=== PATIENT | female | born 1945 | race Caucasian/White ===

== ENCOUNTER 2016-12-09 18:07 | Emergency (ER) | payer OTHER ==
[~2016-12-09] VITALS: Ht 167.6 cm; Wt 98.4 kg
[2016-12-09] MEDS ORDERED: SIMV10TA2 (18:24)
[2016-12-09] MEDS ORDERED: CITA20TA4 (18:24)
[2016-12-09] MEDS ORDERED: LISI-538 (18:24)
[2016-12-09] MEDS ORDERED: METR500T10 (18:24)
[2016-12-09] MEDS ORDERED: CIPR500T3 (18:24)
[2016-12-09] MEDS ORDERED: OMEP40CA2 (18:24)
[2016-12-09] MEDS ORDERED: ALBU17IN (18:24)
[2016-12-09] MEDS ORDERED: NS 1,000 ML IV SCH (20:50)
[2016-12-09] MEDS ORDERED: ONDANSETRON 4MG/2ML VIAL (J2405) IV ONE (21:00)
[2016-12-09] MEDS ORDERED: MORPHINE 4 MG/ML 1ML SYRINGE IV PRN (21:00)
[2016-12-09 21:47] LABS: BASO % 0.3 % (0.0-1.0); EOS # 0.3 K/mm3 (0.0-0.50); EOS % 2.8 % (0.0-3.0); LARGE UNSTAINED CELL # 0.2 K/mm3 (0.0-0.4); LARGE UNSTAINED CELL % 1.7 % (0.0-4.0); LYMPH # 1.8 K/mm3 (1.5-4.5); LYMPH % 15.7 % (24.0-44.0); MEAN CORPUSCULAR HEMOGLOBIN 29.4 pg (27.0-33.0); MEAN CORPUSCULAR HGB CONC 34.4 g/dl (32.0-36.5); MEAN CORPUSCULAR VOLUME 85.5 fl (80.0-96.0); MONO # 0.5 K/mm3 (0.0-0.8); MONO % 5.4 % (0.0-5.0); NEUTROPHILS # 7.5 K/mm3 (1.8-7.7); NEUTROPHILS % 74.2 % (36.0-66.0); PLATELET COUNT, AUTOMATED 208 k/mm3 (150-450); RED CELL DISTRIBUTION WIDTH 13.6 % (11.5-14.5); WHITE BLOOD COUNT 10.1 K/mm3 (4.0-10.0)
[2016-12-09] MEDS ORDERED: GASTROGRAFIN SOLUTION 30ML (Q9963) PO ONE ×3 (22:00→22:30)
[2016-12-09 22:28] LABS: ALBUMIN 3.8 GM/DL (3.2-5.2); ALBUMIN/GLOBULIN RATIO 1.31 (1.00-1.93); ALKALINE PHOSPHATASE 92 U/L (45-117); ALT/SGPT 33 U/L (12-78); ANION GAP 10 MEQ/L (8-16); AST/SGOT 21 U/L (15-37); BILIRUBIN,DIRECT 0.3 MG/DL (0.0-0.2); BILIRUBIN,TOTAL 0.9 MG/DL (0.2-1.0); BLOOD UREA NITROGEN 16 MG/DL (7-18); CALCIUM LEVEL 8.5 MG/DL (8.8-10.2); CARBON DIOXIDE LEVEL 27 MEQ/L (21-32); CHLORIDE LEVEL 101 MEQ/L (98-107); CREATININE FOR GFR 0.73 MG/DL (0.55-1.02); GLOMERULAR FILTRATION RATE > 60.0 (>45); GLUCOSE, FASTING 112 MG/DL (80-110); POTASSIUM SERUM 3.5 MEQ/L (3.5-5.1); SODIUM LEVEL 138 MEQ/L (136-145); TOTAL PROTEIN 6.7 GM/DL (6.4-8.2)
[2016-12-09] MEDS ORDERED: ISOVUE-370 76% 100ML VIAL (Q9967) As Ordered ONE (23:45)
--- NOTE | 2016-12-10 01:10 | REPUSA ---
CLINICAL HISTORY: Abdominal pain. TECHNIQUE: Multiple axial, sagittal and coronal CT images were obtained through the abdomen and pelvi s after administration of intravenous contrast material. COMMENTS: Sigmoid diverticulosis. Thickening of the sigmoid colon with surrounding fat stranding. Scattered simple hepatic cysts with the largest measuring 1.5 cm. Small sliding hiatal hernia. The liver is mildly enlarged with decreased attenuation suggestive of fatty infiltration but without mass or defect. There is no intra or extrahepatic biliary ductal dilatation. The spleen is normal. Th e gallbladder is within normal limits. The pancreas is of normal contour and attenuation characterist ics. There is no evidence of adrenal mass. Both kidneys demonstrate prompt and equal nephrograms. The kidneys are normal in size, shape and conf iguration. There is no evidence of renal or ureteral mass. No renal or ureteral calculi are identifie d. There is no hydroureter or hydronephrosis. Prior appendectomy. No evidence for small or large bowel obstruction. There is no evidence of abdominal ascites or lympha denopathy. There is no evidence of intrinsic or extrinsic bladder mass. There is no pelvic ascites or lymphadeno jaun. Images of the lung bases show no evidence of pleural or parenchymal mass. There are no pleural effusi ons. Atelectatic changes of the lingula. The bony structures are free of lytic or blastic lesions. Multilevel degenerative changes are seen in volving the thoracolumbar spine. Scattered calcifications are seen involving the aorta and major bran ches compatible with atherosclerosis. IMPRESSION: Acute sigmoid diverticulitis. No perforation or abscess formation. Additional chronic findings as above. Thank you for your kind referral of this patient.
[2016-12-10] MEDS ORDERED: LACTULOSE 20 GM/30 ML SYRUP UD PO ONE (01:30)
[2016-12-10] MEDS ORDERED: CIPROFLOXACIN 400 MG in APPROPRIATE DILUENT 1 EA IV ONE (01:30)
[2016-12-10] MEDS ORDERED: metroNIDAZOLE 500 MG in APPROPRIATE DILUENT 1 EA IV ONE (01:30)
[2016-12-10 02:32] VITALS: BP 128/69
== END 2016-12-10 04:15 | disposition home or self-care (01) ==
LOC: M ED 19:05
DX: K57.92 Diverticulitis of intestine, part unspecified, without perforation or abscess without bleeding (principal)
CPT/HCPCS: 74177; 80048; 80076; 81001; 83690; 85025; 87086; 93041; 94760; 96365; 96374; 96375; 99284; J0744; J2405; Q9963; Q9967

== ENCOUNTER → 2017-03-09 | Day surgery (SDC) | payer OTHER ==
[~2017-03-09] VITALS: Ht 165.1 cm; Wt 100.7 kg
[~2017-03-09] MED LIST: ALBU17IN; CIPR500T3; CITA20TA4; CITA20TA4 PO; CLOB0.0548 TOP; ESTR1CRE PV; IBUPROFEN 600 MG TAB PO PRN; LIDOCAINE 2% INJ 100 MG/5 ML SDV (FOR ANES.) As Ordered ONE; LISI-538; LISI-538 PO; LR 1,000 ML IV ONE; LR 1,000 ML IV SCH; METR500T10; MIDAZOLAM INJ 2 MG/2 ML VIAL (J2250) As Ordered ONE; OMEP40CA2; OMEP40CA2 PO; ONDANSETRON 4MG/2ML VIAL (J2405) As Ordered ONE; ONDANSETRON 4MG/2ML VIAL (J2405) IV PRN; PROPOFOL 200 MG/20 ML VIAL As Ordered ONE; ROCURONIUM BROMIDE 50 MG/5 ML VIAL As Ordered ONE; SIMV10TA2; SIMV10TA2 PO; SUGAMMADEX SODIUM 500 MG/5 ML VIAL (BRIDION) As Ordered ONE; TRAM50TA2 PO; TYLE325T5 PO; VASOPRESSIN INJ 20 UNITS/ML VIAL As Ordered ONE; dexameTHASONE 4 MG/ML 1ML VIAL (J1100) As Ordered ONE; fentaNYL 100 MCG/2 ML INJECTION (J3010) As Ordered ONE; fentaNYL 100 MCG/2 ML INJECTION (J3010) IV PRN
--- NOTE | 2017-03-09 13:52 | RO ---
DATE OF SURGERY: 03/09/2017 PREOPERATIVE DIAGNOSIS AND INDICATION FOR SURGERY: Urethral hypomobility with stress urinary incontinence. POSTOPERATIVE DIAGNOSIS: Urethral hypomobility with stress urinary incontinence. PROCEDURE: Solyx mini midurethral sling with cystourethroscopy. SURGEON: Reina Feliciano MD GEAR SETTER: ANESTHESIA: General endotracheal anesthesia. BRIEF DESCRIPTION OF PROCEDURE AND FINDINGS: Celi was brought to the operating room, where sufficient anesthesia was induced. She was prepped, draped, and positioned in the usual sterile fashion with the legs slightly than average in order to help positioning for the mini midurethral sling, and then emptied the bladder, and grasped the anterior wall approximately 1 cm cephalad from the urethra meatus, and injected with diluted vasopressin. We then made an approximately 1 cm vertical incision in the anterior vaginal wall. Strully scissors were then used to dissect out the periurethral space, working laterally on both sides, to create the channels for the Solyx. We then placed the Solyx, right side first, as this is my typical anchoring in the obturator membrane, and then keeping the Solyx smooth and untwisted, placed the left side, and then performed cystourethroscopy, which confirmed absence of injury to the urethra or to the bladder, and we were readily able to visualize the urethral orifices, etc., and had good views in that regard. Then, drained the bladder again. She had a little oozing in the skin before we even place the Solyx with that dissection, so a 2-inch packing was placed vaginally. This will be pulled before she goes home. The vaginal incision was closed using 2-0 Vicryl in a running locked stitch, and the procedure was then ended. Estimated blood loss for the procedure was about 10 mL. Fluid replacement was crystalloid. COMPLICATIONS: None. CONDITION AND DISPOSITION: Celi tolerated the procedure well and was recovering in the recovery room in good condition.
[2017-03-09 18:20] VITALS: BP 178/88
== END | disposition home or self-care (01) ==
LOC: M SDC 09:33
PROVIDERS: ATTEND Obstetrics & Gynecology
DX: N39.3 Stress incontinence (female) (male) (principal); N36.41 Hypermobility of urethra; E11.9 Type 2 diabetes mellitus without complications; I10 Essential (primary) hypertension; K21.9 Gastro-esophageal reflux disease without esophagitis; F41.9 Anxiety disorder, unspecified; J45.909 Unspecified asthma, uncomplicated; Z79.899 Other long term (current) drug therapy; Z87.891 Personal history of nicotine dependence; Z91.040 Latex allergy status; Z88.0 Allergy status to penicillin; Z88.2 Allergy status to sulfonamides
CPT/HCPCS: 57288; C1771; J0690; J1100; J2250; J2405; J3010

== ENCOUNTER → 2017-03-11 | Outpatient (REF) | payer OTHER ==
[~2017-03-11] MED LIST changes: -IBUPROFEN 600 MG TAB PO PRN; -LIDOCAINE 2% INJ 100 MG/5 ML SDV (FOR ANES.) As Ordered ONE; -LR 1,000 ML IV ONE; -LR 1,000 ML IV SCH; -MIDAZOLAM INJ 2 MG/2 ML VIAL (J2250) As Ordered ONE; -ONDANSETRON 4MG/2ML VIAL (J2405) As Ordered ONE; -ONDANSETRON 4MG/2ML VIAL (J2405) IV PRN; -PROPOFOL 200 MG/20 ML VIAL As Ordered ONE; -ROCURONIUM BROMIDE 50 MG/5 ML VIAL As Ordered ONE; -SUGAMMADEX SODIUM 500 MG/5 ML VIAL (BRIDION) As Ordered ONE; -VASOPRESSIN INJ 20 UNITS/ML VIAL As Ordered ONE; -dexameTHASONE 4 MG/ML 1ML VIAL (J1100) As Ordered ONE; -fentaNYL 100 MCG/2 ML INJECTION (J3010) As Ordered ONE; -fentaNYL 100 MCG/2 ML INJECTION (J3010) IV PRN
== END ==
LOC: M LAB REF 16:44
PROVIDERS: ATTEND Obstetrics & Gynecology
DX: R39.89 Other symptoms and signs involving the genitourinary system (principal)

== ENCOUNTER 2017-08-25 09:36 | Day surgery (SDC) | payer OTHER ==
[~2017-08-25] VITALS: Ht 165.1 cm; Wt 96.6 kg
[~2017-08-25 09:36] MED LIST changes: +METF500T13 PO; +METR1TAB66; -METR500T10; +MYRB25TA PO
[2017-08-25] MEDS ORDERED: LR 1,000 ML IV ONE (10:00)
[2017-08-25] MEDS ORDERED: LIDOCAINE 2% INJ 100 MG/5 ML SDV (FOR ANES.) As Ordered ONE (11:42)
[2017-08-25] MEDS ORDERED: PROPOFOL 200 MG/20 ML VIAL As Ordered ONE (11:42)
[2017-08-25] MEDS ORDERED: LABETALOL HCL 100 MG/20 ML VIAL As Ordered ONE (11:45)
--- NOTE | 2017-08-25 12:19 | ROOR ---
Patient Name: Celi Ny Procedure Date: 08/25/2017 11:36 AM Date of : 1945 Age: 72 Room: [facility] Gender: Female Note Status: Finalized Procedure: Upper GI endoscopy Indications: Follow-up of esophageal reflux, Follow-up of reflux esophagitis Providers: Car Clay MD Referring MD: KAMRON FRANCISCO MD Requesting Provider: Medicines: Monitored Anesthesia Care Complications: No immediate complications. Procedure: Pre-Anesthesia Assessment: - Prior to the procedure, a History and Physical was performed, and patient medications and allergies were reviewed. The patient is competent. The risks and benefits of the procedure and the sedation options and risks were discussed with the patient. All questions were answered and informed consent was obtained. Patient identification and proposed procedure were verified by the physician, the nurse and the perioperative educator in the procedure room. Mental Status Examination: alert and oriented. CV Examination: regular rate and rhythm. Prophylactic Antibiotics: The patient does not require prophylactic antibiotics. Prior Anticoagulants: The patient has taken no previous anticoagulant or antiplatelet agents. ASA Grade Assessment: III - A patient with severe systemic disease. After reviewing the risks and benefits, the patient was deemed in satisfactory condition to undergo the procedure. The anesthesia plan was to use monitored anesthesia care (MAC). Immediately prior to administration of medications, the patient was re-assessed for adequacy to receive sedatives. The heart rate, respiratory rate, oxygen saturations, blood pressure, adequacy of pulmonary ventilation, and response to care were monitored throughout the procedure. The physical status of the patient was re-assessed after the procedure. The Endoscope was introduced through the mouth, and advanced to the second part of duodenum. The upper GI endoscopy was accomplished without difficulty. The patient tolerated the procedure well. Findings: The examined esophagus was normal. Multiple small sessile polyps with no stigmata of recent bleeding were found in the gastric fundus, in the gastric body and on the greater curvature of the stomach. Diffuse nodular mucosa was found in the entire examined stomach. The examined duodenum was normal. Impression: - Normal esophagus. - Multiple gastric polyps. - Nodular mucosa in the entire stomach. - Normal examined duodenum. - No specimens collected. Recommendation: - Discharge patient to home. - Resume previous diet. - Continue present medications. Car Clay MD 08/25/2017 12:18:35 PM Number of Addenda: 0 Note Initiated On: 08/25/2017 11:36 AM Estimated Blood Loss: Estimated blood loss: none.
--- NOTE | 2017-08-25 12:24 | ROOR ---
Patient Name: Celi Ny Procedure Date: 08/25/2017 11:36 AM Date of : 1945 Age: 72 Room: [facility] Gender: Female Note Status: Finalized Procedure: Colonoscopy Indications: High risk colon cancer surveillance: Personal history of non-advanced adenoma, Last colonoscopy 3 years ago Providers: Car Clay MD Referring MD: KAMRON FRANCISCO MD Requesting Provider: Medicines: Monitored Anesthesia Care Complications: No immediate complications. Procedure: Pre-Anesthesia Assessment: - Prior to the procedure, a History and Physical was performed, and patient medications and allergies were reviewed. The patient is competent. The risks and benefits of the procedure and the sedation options and risks were discussed with the patient. All questions were answered and informed consent was obtained. Patient identification and proposed procedure were verified by the physician, the nurse and the anesthesiologist in the procedure room. Mental Status Examination: alert and oriented. Airway Examination: normal oropharyngeal airway and neck mobility. CV Examination: regular rate and rhythm. Prophylactic Antibiotics: The patient does not require prophylactic antibiotics. Prior Anticoagulants: The patient has taken no previous anticoagulant or antiplatelet agents. ASA Grade Assessment: III - A patient with severe systemic disease. After reviewing the risks and benefits, the patient was deemed in satisfactory condition to undergo the procedure. The anesthesia plan was to use monitored anesthesia care (MAC). Immediately prior to administration of medications, the patient was re-assessed for adequacy to receive sedatives. The heart rate, respiratory rate, oxygen saturations, blood pressure, adequacy of pulmonary ventilation, and response to care were monitored throughout the procedure. The physical status of the patient was re-assessed after the procedure. The Colonoscope was introduced through the anus and advanced to the cecum, identified by appendiceal orifice and ileocecal valve. The colonoscopy was performed without difficulty. The patient tolerated the procedure well. The quality of the bowel preparation was excellent. Findings: The perianal and digital rectal examinations were normal. A 7 mm polyp was found in the hepatic flexure on withdrawal of the scope. The polyp was sessile. The polyp was removed with a cold snare. Resection and retrieval were complete. The pathology specimen was placed into Bottle Number 2. Two sessile polyps were found in the hepatic flexure as the scope was inserted. The polyps were 3 to 5 mm in size. These polyps were removed with a cold snare. Resection and retrieval were complete. The pathology specimen was placed into Bottle Number 1. Multiple medium-mouthed diverticula were found in the sigmoid colon. Impression: - One 7 mm polyp at the hepatic flexure, removed with a cold snare. Resected and retrieved. - Two 3 to 5 mm polyps at the hepatic flexure, removed with a cold snare. Resected and retrieved. - Diverticulosis in the sigmoid colon. Recommendation: - Discharge patient to home. - Resume previous diet. - Continue present medications. - Await pathology results. - Telephone endoscopist for pathology results in 1 week. Car Clay MD 08/25/2017 12:24:31 PM Number of Addenda: 0 Note Initiated On: 08/25/2017 11:36 AM Estimated Blood Loss: Estimated blood loss was minimal.
[2017-08-25 12:43] VITALS: BP 149/83
== END 2017-08-25 13:17 | disposition home or self-care (01) ==
LOC: M OPP 09:36
PROVIDERS: ATTEND Surgery
DX: Z12.11 Encounter for screening for malignant neoplasm of colon (principal); D12.3 Benign neoplasm of transverse colon; K57.30 Diverticulosis of large intestine without perforation or abscess without bleeding; Z86.010 Personal history of colon polyps; K21.0 Gastro-esophageal reflux disease with esophagitis; K31.7 Polyp of stomach and duodenum; K31.89 Other diseases of stomach and duodenum; I10 Essential (primary) hypertension; E78.00 Pure hypercholesterolemia, unspecified; F41.9 Anxiety disorder, unspecified; Z84.81 Family history of carrier of genetic disease; J45.909 Unspecified asthma, uncomplicated; Z79.891 Long term (current) use of opiate analgesic; Z79.84 Long term (current) use of oral hypoglycemic drugs; Z79.899 Other long term (current) drug therapy; Z88.0 Allergy status to penicillin; Z88.1 Allergy status to other antibiotic agents; Z88.2 Allergy status to sulfonamides; Z88.8 Allergy status to other drugs, medicaments and biological substances; Z91.040 Latex allergy status

== ENCOUNTER → 2018-03-02 | Outpatient (CLI) | payer OTHER ==
[2018-03-02 12:33] LABS: COMPLEMENT C3 132 MG/DL (90-180); COMPLEMENT C4 21.8 MG/DL (10-40); IMMUNOGLOBULIN G 861 MG/DL (681-1648); IMMUNOGLOBULIN M 93.5 MG/DL (40-230)
[2018-03-05 08:11] LABS: ALPHA 1 ANTITRYPSIN 145 mg/dL (90-200)
[2018-03-05 08:11] LABS: D001-IgE D pteronyssinus <0.10 kU/L (Class 0); E001-IgE Cat Epith/Dander < 0.10 kU/L (Class 0); E005-IgE Dog Dander < 0.10 kU/L (Class 0); F002-IgE Milk 0.49 kU/L (Class I); F004-IgE Wheat < 0.10 kU/L (Class 0); F013-IgE Peanut < 0.10 kU/L (Class 0); F014-IgE Soybean < 0.10 kU/L (Class 0); F026-IgE Pork < 0.10 kU/L (Class 0); F027-IgE Beef 0.12 kU/L (Class 0/I); F245-IgE Egg, Whole < 0.10 kU/L (Class 0); FX02-IgE Food Mix (Sea Foods) Negative (.); G002-IgE Bermuda Grass < 0.10 kU/L (Class 0); G008-IgE Kentucky Bluegrass < 0.10 kU/L (Class 0); M001-IgE Penicillium chrysogen < 0.10 kU/L (Class 0); M002 IgE Cladosporium herbaru < 0.10 kU/L (Class 0); M003 IgE Aspergillus fumigatu < 0.10 kU/L (Class 0); M006-IgE Alternaria alternata < 0.10 kU/L (Class 0); T001-IgE Maple/Box Elder < 0.10 kU/L (Class 0); T003-IgE Common Silver Birch < 0.10 kU/L (Class 0); T006-IgE Cedar, Mountain < 0.10 kU/L (Class 0); T007-IgE Oak, White < 0.10 kU/L (Class 0); T008-IgE Elm, American < 0.10 kU/L (Class 0); T015-IgE Ash, White < 0.10 kU/L (Class 0); T041-IgE Hickory, White < 0.10 kU/L (Class 0); T070-IgE White Mulberry < 0.10 kU/L (Class 0); W001-IgE Ragweed, Short < 0.10 kU/L (Class 0); W009-IgE Plantain, English < 0.10 kU/L (Class 0); W014-IgE Pigweed, Rough < 0.10 kU/L (Class 0); W018-IgE Sheep Sorrel < 0.10 kU/L (Class 0)
[2018-03-05 10:16] LABS: IMMUNOGLOBULIN E, TOTAL 236 IU/mL (0-100)
== END ==
LOC: M WUC 10:29
DX: J45.20 Mild intermittent asthma, uncomplicated (principal); K21.9 Gastro-esophageal reflux disease without esophagitis; J30.1 Allergic rhinitis due to pollen; J30.89 Other allergic rhinitis; H10.45 Other chronic allergic conjunctivitis
CPT/HCPCS: 82785

== ENCOUNTER → 2018-07-15 | Outpatient (CLI) | payer OTHER | LOC: M WHC 10:50 | DX: Z12.31 Encounter for screening mammogram for malignant neoplasm of breast (principal); Z80.0 Family history of malignant neoplasm of digestive organs; Z79.818 Long term (current) use of other agents affecting estrogen receptors and estrogen levels | CPT/HCPCS: 77067 ==

== ENCOUNTER → 2018-10-25 | Outpatient (CLI) | payer OTHER ==
[~2018-10-25] MED LIST changes: +METR-201; -METR1TAB66
--- NOTE | 2018-10-26 02:40 | REP ---
Clinical: Chronic cough . Comparison: None . Technique: PA and lateral. Findings: The mediastinum and cardiac silhouette are normal. The lung sorenson are clear and without acute consolidation, effusion, or pneumothorax. The skeletal structures are intact and normal. Impression: 1. No acute cardiopulmonary process. Electronically Signed by Augie Garcia MD 10/26/2018 02:31 A
== END ==
LOC: M WUC 09:27
PROVIDERS: ATTEND Internal Medicine
DX: R05 Cough (principal)

== ENCOUNTER → 2018-11-10 | Outpatient (CLI) | payer OTHER ==
[2018-11-10 17:19] LABS: BASO % 0.2 % (0.0-1.0); HEMATOCRIT 42.3 % (36.0-47.0); HEMOGLOBIN 14.4 g/dl (12.0-15.5); LYMPH % 12.1 % (24.0-44.0); MEAN CORPUSCULAR VOLUME 85.1 fl (80.0-96.0); MONO # 1.1 10^3/uL (0.0-0.8); MONO % 6.7 % (0.0-5.0); NEUTROPHILS # 13.3 10^3/uL (1.8-7.7); NEUTROPHILS % 80.6 % (36.0-66.0); PLATELET COUNT, AUTOMATED 227 10^3/uL (150-450); RED BLOOD COUNT 4.97 10^6/uL (4.00-5.40); WHITE BLOOD COUNT 16.5 10^3/uL (4.0-10.0)
[2018-11-10 17:24] LABS: BLOOD UREA NITROGEN 12 MG/DL (7-18); CALCIUM LEVEL 8.8 MG/DL (8.8-10.2); CARBON DIOXIDE LEVEL 30 MEQ/L (21-32); CHLORIDE LEVEL 96 MEQ/L (98-107); CREATININE FOR GFR 0.82 MG/DL (0.55-1.30); GLOMERULAR FILTRATION RATE > 60.0 (>39); GLUCOSE, FASTING 165 MG/DL (70-100); POTASSIUM SERUM 3.7 MEQ/L (3.5-5.1); SODIUM LEVEL 135 MEQ/L (136-145)
== END ==
LOC: M WUC 11:20
PROVIDERS: ATTEND Physician Assistant
DX: R35.0 Frequency of micturition (principal); K57.92 Diverticulitis of intestine, part unspecified, without perforation or abscess without bleeding

== ENCOUNTER → 2019-08-10 | Outpatient (CLI) | payer MEDICARE, OTHER ==
[~2019-08-10] MED LIST changes: -CITA20TA4; -CITA20TA4 PO; +CITA20TA6; +CITA20TA6 PO; -METR-201; +METR-265; -OMEP40CA2; -OMEP40CA2 PO; +OMEP40CA97; +OMEP40CA97 PO
--- NOTE | 2019-08-10 13:05 | REPMRS ---
Patient History The patient states she had a clinical breast exam in 01/2019. Family history of colorectal cancer in paternal cousin. Took hormonal contraceptives for 2 months. Took estrogen for 2 years. Took progesterone for 2 years. 3D TOMOSYNTHESIS WAS PERFORMED. [facility] for [facility] 3.[facility]%. Digital Woman Screen Mammo: August 10, 2019 - Exam #: [id number] Bilateral CC and MLO view(s) were taken. Technologist: Nadja Jaime, Technologist Prior study comparison: July 15, 2018, bilateral digital woman screen mammo performed at [facility]. July 15, 2017, digital woman screen mammo performed at [facility]. FINDINGS: There are scattered fibroglandular densities. There has been no change in the appearance of the mammogram from the prior studies. There is a mild amount of residual fibroglandular tissue which is fairly symmetric. There is no interval development of dominant mass, architectural distortion, or clustered microcalcification suggestive of malignancy. Assessment: BI-RADS/ACR category 1 mammogram. Negative Mammogram. Recommendation Routine screening mammogram in 1 year (for women over age 40). This mammogram was interpreted with the aid of an FDA-approved computer-aided dectection system. Electronically Signed By: Higinio Lomeli MD 08/10/19 [id number]
== END ==
LOC: M WHC 11:06
PROVIDERS: ATTEND Obstetrics & Gynecology
DX: Z12.31 Encounter for screening mammogram for malignant neoplasm of breast (principal); Z92.0 Personal history of contraception; Z92.89 Personal history of other medical treatment

== ENCOUNTER → 2019-10-11 | Outpatient (CLI) | payer MEDICARE ==
[~2019-10-11] MED LIST changes: -SIMV10TA2; -SIMV10TA2 PO; +SIMV10TA21; +SIMV10TA21 PO
--- NOTE | 2019-10-11 20:09 | REP ---
LEFT WRIST COMPLETE: 10/11/2019. Clinical history: Pain in left wrist and hand. The patient denies injury. No prior study. Findings: Four views show minor soft tissue swelling over the distal forearm and dorsal aspect of the wrist. On the true lateral view, there is a small calcific or ossific density at the dorsal aspect of one and CMC joints which could be a small avulsion or ligamentous calcification. I do not see a definite displaced fracture or focal lesion. Radiocarpal joint intact. There are degenerative changes at the first CMC joint. Distal radius and ulna intact. Bones are demineralized. Impression: 1. Some soft tissue swelling of the dorsal aspect of the hand, wrist and distal forearm but no destructive lesion. 2. Question of a small avulsion at one of the CMC joints. Please see the arrow on image 4 and clinically correlate. Electronically Signed by Calvin Neff MD 10/12/2019 08:06 A
== END ==
LOC: M RAD 13:02
PROVIDERS: ATTEND Psychiatry & Neurology Neurology
DX: M79.642 Pain in left hand (principal); R20.2 Paresthesia of skin

== ENCOUNTER → 2020-04-05 | Outpatient (CLI) | payer MEDICARE ==
[2020-04-05 16:41] LABS: C REACTIVE PROTEIN QUANTITATIV 0.97 MG/DL (0.00-0.30); RHEUMATOID FACTOR QUANT < 10.0 IU/ML (<15.0); URIC ACID 6.3 MG/DL (2.6-6.0)
[2020-04-07 14:08] LABS: ANTINUCLEAR ANTIBODIES DIRECT Negative (Negative)
== END ==
LOC: M WUC 14:45
PROVIDERS: ATTEND Orthopaedic Surgery
DX: M19.032 Primary osteoarthritis, left wrist (principal)

== ENCOUNTER → 2020-08-13 | Outpatient (CLI) | payer MEDICARE ==
--- NOTE | 2020-08-13 12:09 | REPMRS ---
Patient History The patient states she had a clinical breast exam in 02/2020. Family history of colorectal cancer in paternal cousin. Took hormonal contraceptives for 2 months. Took estrogen for 2 years. Took progesterone for 2 years. 3D TOMOSYNTHESIS WAS PERFORMED. The [facility] lifetime risk for breast cancer is 3.4%. Volpara breast density a. Digital Woman Screen Mammo: August 13, 2020 - Exam #: [id number] Bilateral CC and MLO view(s) were taken. Technologist: Nadja Jaime, Technologist Prior study comparison: August 10, 2019, bilateral digital woman screen mammo performed at [facility]. July 15, 2018, bilateral digital woman screen mammo performed at [facility]. FINDINGS: There are scattered fibroglandular densities. There has been no change in the appearance of the mammogram from the prior studies. There is a mild amount of residual fibroglandular tissue which is fairly symmetric. There is no interval development of dominant mass, architectural distortion, or clustered microcalcification suggestive of malignancy. Assessment: BI-RADS/ACR category 1 mammogram. Negative Mammogram. Recommendation Routine screening mammogram in 1 year (for women over age 40). This mammogram was interpreted with the aid of an FDA-approved computer-aided dectection system. Electronically Signed By: Higinio Lomeli MD 08/13/20 [id number]
== END ==
LOC: M WHC 11:20
PROVIDERS: ATTEND Obstetrics & Gynecology
DX: Z12.31 Encounter for screening mammogram for malignant neoplasm of breast (principal)

== ENCOUNTER → 2020-08-30 | Outpatient (CLI) | payer MEDICARE ==
[~2020-08-30] MED LIST changes: +ACET-838 PO; +ADVA115A INH; +CETI10CH PO; +GABA600T4 PO; +VENTAER INH
== END ==
LOC: M LABSMTC 11:57
PROVIDERS: ATTEND Anesthesiology
DX: Z01.812 Encounter for preprocedural laboratory examination (principal); Z20.828 Contact with and (suspected) exposure to other viral communicable diseases

== ENCOUNTER 2021-03-24 02:17 | Emergency (ER) | payer MEDICARE ==
[~2021-03-24] VITALS: Ht 165.1 cm; Wt 100.0 kg
[~2021-03-24 02:17] MED LIST changes: -ACET-838 PO; +ACET32TAB PO; -LISI-538; -LISI-538 PO; +LISI20TA33; +LISI20TA33 PO; +OMEP40CA4; +OMEP40CA4 PO; -OMEP40CA97; -OMEP40CA97 PO
[2021-03-24] MEDS ORDERED: DOXY100C PO (02:28)
--- NOTE | 2021-03-24 03:55 | REPVR ---
PROCEDURE INFORMATION: Exam: XR Chest Exam date and time: 03/24/2021 3:14 AM Age: 75 years old Clinical indication: Other: Cough/sob TECHNIQUE: Imaging protocol: XR of the chest. Views: 2 views. COMPARISON: CR CHEST 2 VIEW 10/25/2018 9:33 AM FINDINGS: Lungs: Mild nonspecific bilateral perihilar ground-glass and reticulonodular opacities. Pleural spaces: Unremarkable. No pleural effusion. No pneumothorax. Heart/Mediastinum: Unremarkable. No cardiomegaly. Bones/joints: Unremarkable. IMPRESSION: No acute findings. Electronically signed by: Mayo Peng On 03/24/2021 03:55:10 AM
[2021-03-24 07:48] VITALS: BP 135/82
== END 2021-03-24 07:50 | disposition home or self-care (01) ==
LOC: M ED 02:17
DX: J20.9 Acute bronchitis, unspecified (principal); J02.9 Acute pharyngitis, unspecified; E11.9 Type 2 diabetes mellitus without complications; K21.9 Gastro-esophageal reflux disease without esophagitis; F41.9 Anxiety disorder, unspecified; F17.200 Nicotine dependence, unspecified, uncomplicated; Z88.0 Allergy status to penicillin; Z88.2 Allergy status to sulfonamides; Z88.8 Allergy status to other drugs, medicaments and biological substances; Z79.84 Long term (current) use of oral hypoglycemic drugs; Z79.899 Other long term (current) drug therapy

== ENCOUNTER → 2021-08-14 | Outpatient (CLI) | payer MEDICARE ==
[~2021-08-14] MED LIST changes: +DOXY100C3 PO
--- NOTE | 2021-08-14 12:06 | REPMRS ---
Patient History The patient states she had a clinical breast exam on 04-15-2021. Family history of colorectal cancer in paternal cousin. Took hormonal contraceptives for 2 months. Took estrogen for 2 years. Took progesterone for 2 years. Tomosynthesis is performed. Volpara breast density is a. [facility] lifetime risk of breast cancer 3.2%. Patient states no breast complaints today. Patient has signed MRS History Sheet. Digital Woman Screen Mammo: August 14, 2021 - Exam #: [id number] Bilateral CC and MLO view(s) were taken. Technologist: Lucie Booker Machine Hose Cutter Prior study comparison: August 13, 2020, bilateral digital woman screen mammo performed at [facility] [place]. August 10, 2019, bilateral digital woman screen mammo performed at [facility] [place]. FINDINGS: There are scattered fibroglandular densities. There has been no change in the appearance of the mammogram from the prior studies. There is a mild amount of residual fibroglandular tissue which is fairly symmetric. There is no interval development of dominant mass, architectural distortion, or clustered microcalcification suggestive of malignancy. Assessment: BI-RADS/ACR category 1 mammogram. Negative Mammogram. Recommendation Routine screening mammogram in 1 year (for women over age 40). This mammogram was interpreted with the aid of an FDA-approved computer-aided dectection system. Electronically Signed By: Higinio Lomeli MD 08/14/21 [id number]
== END ==
LOC: M WHC 10:54
PROVIDERS: ATTEND Obstetrics & Gynecology
DX: Z12.31 Encounter for screening mammogram for malignant neoplasm of breast (principal)

== ENCOUNTER → 2022-03-11 | Outpatient (CLI) | payer MEDICARE | LOC: M WUC 15:14 | PROVIDERS: ATTEND Family Medicine | DX: R06.2 Wheezing (principal); R05.1 Acute cough ==

== ENCOUNTER → 2022-08-21 | Outpatient (REF) | payer MEDICARE | LOC: M PLALAB 13:38 | PROVIDERS: ATTEND Nurse Practitioner Family | DX: Z12.4 Encounter for screening for malignant neoplasm of cervix (principal) ==

== ENCOUNTER → 2022-08-21 | Outpatient (CLI) | payer MEDICARE | LOC: M WHC 11:17 | PROVIDERS: ATTEND Nurse Practitioner Family | DX: Z12.31 Encounter for screening mammogram for malignant neoplasm of breast (principal) ==

== ENCOUNTER → 2023-07-10 | Outpatient (CLI) | payer MEDICARE | LOC: M WUC 14:51 | PROVIDERS: ATTEND Physician Assistant | DX: S20.212A Contusion of left front wall of thorax, initial encounter (principal); S80.12XA Contusion of left lower leg, initial encounter; W10.1XXA Fall (on)(from) sidewalk curb, initial encounter; M17.12 Unilateral primary osteoarthritis, left knee; Y92.9 Unspecified place or not applicable ==

== ENCOUNTER → 2023-07-31 | Outpatient (REF) | payer MEDICARE ==
[2023-07-31 18:47] LABS: APPEARANCE, URINE CLEAR (CLEAR); BACTERIA, URINE AUTO NEGATIVE (NEGATIVE); BILIRUBIN, URINE AUTO NEGATIVE (NEGATIVE); BLOOD, URINE BLOOD NEGATIVE (NEGATIVE); COLOR, URINE STRAW (YELLOW); GLUCOSE, URINE (UA) AUTO NEGATIVE (NEGATIVE); KETONE, URINE AUTO NEGATIVE (NEGATIVE); LEUKOCYTE ESTERASE, URINE AUTO NEGATIVE (NEGATIVE); NITRITE, URINE AUTO NEGATIVE (NEGATIVE); PROTEIN, URINE AUTO NEGATIVE (NEGATIVE); RBC, URINE AUTO 0 /HPF (0-3); SPECIFIC GRAVITY URINE AUTO 1.006 (1.002-1.035); SQUAMOUS EPITHELIAL CELL UR AU 1 /HPF (0-6); UROBILINOGEN, URINE AUTO 0.2 mg/dL (0.0-2.0); WBC, URINE AUTO 1 /HPF (0-3)
== END ==
LOC: M SFHCWAGY 16:57
PROVIDERS: ATTEND Nurse Practitioner Family
DX: R39.15 Urgency of urination (principal)

== ENCOUNTER → 2023-08-24 | Outpatient (CLI) | payer MEDICARE | LOC: M WHC 14:52 | PROVIDERS: ATTEND Nurse Practitioner Family | DX: Z12.31 Encounter for screening mammogram for malignant neoplasm of breast (principal) ==

== ENCOUNTER 2024-02-05 19:43 | Emergency (ER) | payer MEDICARE ==
[~2024-02-05] VITALS: Ht 165.1 cm; Wt 99.6 kg
[2024-02-05] MEDS: KETOROLAC 30 MG/ML 1ML VIAL IV ONE (22:00)
[2024-02-05] MEDS: dexAMETHasone 20MG/5ML VIAL IV ONE (22:00)
[2024-02-05] MEDS ORDERED: HYDR-3713 PO (23:35)
[2024-02-05] MEDS ORDERED: LIDO5DIS41 TD (23:35)
[2024-02-05] MEDS ORDERED: MEDR4PAK PO (23:35)
[2024-02-05] MEDS: NORCO 5/325MG TABLET (HOME DOSE PACK) PO ONE (23:45)
[2024-02-05 23:55] VITALS: BP 136/74; TEMP 98.3; O2SAT 98
== END 2024-02-05 23:57 | disposition home or self-care (01) ==
LOC: M ED 19:43
DX: M54.17 Radiculopathy, lumbosacral region (principal); M48.07 Spinal stenosis, lumbosacral region; I10 Essential (primary) hypertension; K21.9 Gastro-esophageal reflux disease without esophagitis; J45.909 Unspecified asthma, uncomplicated; F41.9 Anxiety disorder, unspecified; Z88.0 Allergy status to penicillin; Z88.1 Allergy status to other antibiotic agents; Z88.2 Allergy status to sulfonamides; Z91.040 Latex allergy status; Z79.52 Long term (current) use of systemic steroids; Z79.4 Long term (current) use of insulin; Z79.811 Long term (current) use of aromatase inhibitors; Z79.899 Other long term (current) drug therapy
CPT/HCPCS: 80047; 96374; 99284; J1100; J1885

== ENCOUNTER → 2024-05-25 | Outpatient (CLI) | payer MEDICARE ==
[~2024-05-25] MED LIST changes: +GABA-1490 PO; -GABA600T4 PO; +HYDR-3713 PO; +LIDO5DIS41 TD; +MEDR4PAK PO
[2024-05-25 17:48] LABS: COMPLEMENT C3 167.1 MG/DL (90.0-170.0); IMMUNOGLOBULIN A 138.6 MG/DL (40-350)
[2024-05-25 17:49] LABS: COMPLEMENT C4 25.5 MG/DL (12-36); IMMUNOGLOBULIN G 709 MG/DL (650-1600)
[2024-05-27 09:18] LABS: ALPHA 1 ANTITRYPSIN 152 mg/dL (83-199)
[2024-05-28 00:23] LABS: ALMOND IGE FOOD < 0.10 kU/L (<0.10); BERMUDA GRASS IGE < 0.10 kU/L (<0.10); BIRCH IGE < 0.10 kU/L (<0.10); CASHEW NUT IGE FOOD < 0.10 kU/L (<0.10); CODFISH IGE FOOD < 0.10 kU/L (<0.10); COMMON RAGWEED SHORT IGE < 0.10 kU/L (<0.10); COWS MILK FOOD 0.22 kU/L (<0.10); D001 IGE D PTERONYSSINUS < 0.10 kU/L (<0.10); D002-IGE D FARINAE < 0.10 kU/L (<0.10); E001-IGE CAT DANDER < 0.10 kU/L (<0.10); E005-IGE DOG DANDER < 0.10 kU/L (<0.10); EGG WHITE FOOD < 0.1 kU/L (<0.10); ELM IGE < 0.10 kU/L (<0.10); HAZELNUT IGE FOOD < 0.10 kU/L (<0.10); I006 IGE COCKROACH < 0.10 kU/L (<0.10); IMMUNOGLOBULIN E FOR ALLERGENS 258 kU/L (<OR=114); M002 IGE CLADOSPORIUM HERBARU < 0.10 kU/L (<0.10); M003 IGE ASPERGILLUS FUMIGATU < 0.10 kU/L (<0.10); M006 IGE ALTERNIA ALTERNATA < 0.10 kU/L (<0.10); M1-PENICILLIUM NOTATUM < 0.10 kU/L (<0.10); MOUSE URINE IGE < 0.10 kU/L (<0.10); MUGWORT IGE < 0.10 kU/L (<0.10); OAK IGE < 0.10 kU/L (<0.10); PEANUT IGE FOOD < 0.10 kU/L (<0.10); ROUGH PIGWEED IGE < 0.10 kU/L (<0.10); SALMON IGE FOOD < 0.10 kU/L (<0.10); SCALLOP IGE FOOD < 0.10 kU/L (<0.10); SESAME SEED IGE FOOD < 0.10 kU/L (<0.10); SHEEP SORREL IGE < 0.10 kU/L (<0.10); SHRIMP IGE FOOD < 0.10 kU/L (<0.10); SOYBEAN IGE FOOD < 0.10 kU/L (<0.10); SYCAMORE IGE < 0.10 kU/L (<0.10); T001-IGE MAPLE BOX ELDER < 0.10 kU/L (<0.10); T006-IGE MOUNTAIN CEDAR < 0.10 kU/L (<0.10); T014 COTTONWOOD IGE < 0.10 kU/L (<0.10); TIMOTHY GRASS IGE < 0.10 kU/L (<0.10); TUNA IGE FOOD < 0.10 kU/L (<0.10); WALNUT IGE FOOD < 0.10 kU/L (<0.10); WALNUT TREE IGE < 0.10 kU/L (<0.10); WHEAT IGE FOOD < 0.10 kU/L (<0.10); WHITE ASH IGE < 0.10 kU/L (<0.10); WHITE MULBERRY IGE < 0.10 kU/L (<0.10)
== END ==
LOC: M WUC 13:53
PROVIDERS: ATTEND Allergy & Immunology
DX: R05.3 Chronic cough (principal); J30.1 Allergic rhinitis due to pollen; J32.0 Chronic maxillary sinusitis

== ENCOUNTER → 2024-07-15 | Outpatient (REF) | payer MEDICARE | LOC: M WUC 19:42 | PROVIDERS: ATTEND Physician Assistant | DX: N30.01 Acute cystitis with hematuria (principal) ==

== ENCOUNTER → 2024-09-07 | Outpatient (CLI) | payer MEDICARE | LOC: M WHC 14:39 | PROVIDERS: ATTEND Nurse Practitioner Family | DX: Z12.31 Encounter for screening mammogram for malignant neoplasm of breast (principal); R92.313 Mammographic fatty tissue density, bilateral breasts ==

== ENCOUNTER → 2024-09-07 | Outpatient (REF) | payer MEDICARE | LOC: M SFHCWAGY 16:54 | PROVIDERS: ATTEND Nurse Practitioner Family | DX: N73.9 Female pelvic inflammatory disease, unspecified (principal); R10.2 Pelvic and perineal pain ==

== ENCOUNTER → 2024-10-25 | Outpatient (CLI) | payer MEDICARE ==
[~2024-10-25] MED LIST changes: +BAYE81TA10 PO; +PRESCAP4 PO; +THERTAB52 PO
== END ==
LOC: M RAD 12:07
PROVIDERS: ATTEND Nurse Practitioner Family
DX: R10.2 Pelvic and perineal pain (principal); N88.8 Other specified noninflammatory disorders of cervix uteri; D25.1 Intramural leiomyoma of uterus

== ENCOUNTER 2024-11-04 07:36 | Day surgery (SDC) | payer MEDICARE ==
[~2024-11-04] VITALS: Ht 165.1 cm; Wt 92.1 kg
[~2024-11-04 07:36] MED LIST changes: +LISI20TA35 PO; +NEUR800T PO
[2024-11-04] MEDS ORDERED: LIDOCAINE 2% 100MG/5ML SDV (FOR ANES.) As Ordered ONE (08:57)
[2024-11-04] MEDS ORDERED: propofoL 200 MG/20 ML VIAL As Ordered ONE (08:57)
[2024-11-04 10:03] VITALS: TEMP 98.2
[2024-11-04 10:23] VITALS: BP 148/86; O2SAT 98
== END 2024-11-04 10:31 | disposition home or self-care (01) ==
LOC: M OPP 07:36
PROVIDERS: ATTEND Surgery
DX: K57.30 Diverticulosis of large intestine without perforation or abscess without bleeding (principal); Z86.0100 Personal history of colon polyps, unspecified; K30 Functional dyspepsia; Z88.0 Allergy status to penicillin; Z88.2 Allergy status to sulfonamides; Z88.8 Allergy status to other drugs, medicaments and biological substances; Z91.040 Latex allergy status; Z79.82 Long term (current) use of aspirin; Z79.84 Long term (current) use of oral hypoglycemic drugs; Z79.51 Long term (current) use of inhaled steroids; Z79.899 Other long term (current) drug therapy; J45.909 Unspecified asthma, uncomplicated; Z87.891 Personal history of nicotine dependence

== ENCOUNTER → 2024-12-21 | Outpatient (REF) | payer BC | LOC: M PLALAB 15:56 | PROVIDERS: ATTEND Obstetrics & Gynecology | DX: R93.89 Abnormal findings on diagnostic imaging of other specified body structures (principal) ==

== ENCOUNTER 2025-03-28 12:45 | Day surgery (SDC) | payer MEDICARE ==
[~2025-03-28] VITALS: Ht 165.1 cm; Wt 92.5 kg
[~2025-03-28 12:45] MED LIST changes: +LIDO1ADH93 TD; -LIDO5DIS41 TD
[2025-03-28 13:49] LABS: CALCIUM LEVEL 9.6 MG/DL (8.3-10.6); CARBON DIOXIDE LEVEL 30.0 MMOL/L (20-31); CHLORIDE LEVEL 103.0 MMOL/L (98-107); CREATININE FOR GFR 0.73 MG/DL (0.55-1.30); GLOMERULAR FILTRATION RATE 84.7 (>39); POTASSIUM SERUM 4.5 MMOL/L (3.5-5.1); SODIUM LEVEL 140.0 MMOL/L (136-145)
[2025-03-28] MEDS ORDERED: ONDANSETRON 4MG 2ML VIAL As Ordered ONE (13:52)
[2025-03-28] MEDS ORDERED: dexAMETHasone 4 MG/ML 1 ML VIAL As Ordered ONE (13:52)
[2025-03-28] MEDS ORDERED: KETOROLAC 30 MG/ML 1 ML VIAL As Ordered ONE (13:52)
[2025-03-28] MEDS ORDERED: LIDOCAINE 2% 100 MG/5 ML SDV (FOR ANES.) As Ordered ONE (13:53)
[2025-03-28] MEDS: SILVER NITRATE APPLICATOR (1 = QTY 10) As Ordered ONE (14:29)
[2025-03-28] MEDS: LIDOCAINE 1% MDV 20 ML VIAL As Ordered ONE (15:02)
[2025-03-28] MEDS: ONDANSETRON 4MG 2ML VIAL IV PRN (16:02)
[2025-03-28] MEDS: MORPHINE 2 MG/ML 1 ML VIAL IV PRN (16:02)
[2025-03-28 16:53] VITALS: BP 148/74; TEMP 97.4; O2SAT 96
== END 2025-03-28 16:55 | disposition home or self-care (01) ==
LOC: M SDC 12:45
PROVIDERS: ATTEND Obstetrics & Gynecology
DX: N95.0 Postmenopausal bleeding (principal); N84.0 Polyp of corpus uteri; Z98.51 Tubal ligation status; I10 Essential (primary) hypertension; E11.9 Type 2 diabetes mellitus without complications; J45.909 Unspecified asthma, uncomplicated; E78.00 Pure hypercholesterolemia, unspecified; K21.9 Gastro-esophageal reflux disease without esophagitis; R32 Unspecified urinary incontinence; Z79.82 Long term (current) use of aspirin; Z79.899 Other long term (current) drug therapy; Z87.19 Personal history of other diseases of the digestive system; F41.9 Anxiety disorder, unspecified; Z87.891 Personal history of nicotine dependence; Z88.0 Allergy status to penicillin; Z88.2 Allergy status to sulfonamides; Z91.040 Latex allergy status; Z88.1 Allergy status to other antibiotic agents; Z90.49 Acquired absence of other specified parts of digestive tract
CPT/HCPCS: 36415; 58558; 80048; 85014; 85018; 86850; 86900; 86901; 88305; 93005; J1100; J1885; J2405; J3010

== ENCOUNTER → 2025-09-12 | Outpatient (CLI) | payer MEDICARE | LOC: M WHC 09:21 | PROVIDERS: ATTEND Nurse Practitioner Family | DX: N95.1 Menopausal and female climacteric states (principal); Z13.820 Encounter for screening for osteoporosis; Z12.31 Encounter for screening mammogram for malignant neoplasm of breast; R92.313 Mammographic fatty tissue density, bilateral breasts; M85.89 Other specified disorders of bone density and structure, multiple sites ==